=== PATIENT | male | born 1960 | race Two or more races ===

== ENCOUNTER 2021-05-27 18:59 | Outpatient (REF) | payer SELFPAY ==
--- NOTE | ~2021-05-27 | US_ITS ---
EXAMINATION: US VENOUS ULTRASOUND WITH DOPPLER LOWER EXTREMITY, RIGHT CLINICAL INFORMATION: Soft tissue disorders. COMPARISON: None TECHNIQUE: Ultrasound of the deep veins is performed from the hip to the calf with compression sonography and color and pulse Doppler assessment. Spectral analysis with color-flow imaging is performed. FINDINGS: There is normal venous compression and respiratory variation and augmented flow. The visualized common femoral vein, superficial femoral vein, profunda femoral vein, popliteal vein, and the trifurcation region shows no evidence of deep venous thrombosis. There is no significant popliteal fossa cyst. If the patient's symptoms persist, followup ultrasound in 5 days 7 days might be of value to exclude proximal propagation from a non-visualized calf vein. US/US venous duplex LE RT IMPRESSION: No DVT demonstrated in the right lower extremity.
== END 2021-05-27 19:00 | disposition home or self-care (01) ==
LOC: HO.US 18:59
PROVIDERS: Visit Provider Physician Assistant
DX: M79.604 Pain in right leg (principal); M79.89 Other specified soft tissue disorders
CPT/HCPCS: 93971

== ENCOUNTER 2021-12-11 18:34 | Inpatient (IN) | payer BC, SELFPAY ==
--- NOTE | ~2021-12-11 | MR_ITS ---
EXAMINATION: MR ABDOMEN WITHOUT AND WITH CONTRAST CLINICAL INFORMATION: Right hepatic lesion. COMPARISON: CT scan of the abdomen and pelvis dated 12/11/2021. TECHNIQUE: MR abdomen was performed without and with use of 10 mL intravenous Gadavist gadolinium contrast. Postcontrast images are performed in multiphase dynamic sequences. Imaging was performed in 3 planes. FINDINGS: LUNG BASES: The visualized lung bases are unremarkable. LIVER, GALLBLADDER, AND BILIARY TREE: In the right hepatic lobe is a homogeneous T2 hyperintense lesion demonstrating progressive peripheral nodular enhancement on postcontrast images measuring approximately 5.3 x 3.9 x 4.0 cm inferiorly in segment 5. No other significant hepatic abnormality. PANCREAS: Unremarkable. SPLEEN: Normal. ADRENAL GLANDS: Normal. KIDNEYS AND URETERS: Tiny T2 hyperintense, nonenhancing cysts bilaterally. No hydroureteronephrosis. GASTROINTESTINAL TRACT: The stomach, small bowel and appendix are unremarkable. Mild distal colonic diverticulosis of acute diverticulitis at the descending/sigmoid junction. ABDOMINAL WALL: No significant hernia is appreciated. LYMPH NODES: No lymphadenopathy. VASCULAR: Unremarkable. OSSEOUS STRUCTURES: Mild to moderate degenerative disc disease from L2-L3 and L5-S1 most pronounced at L3-L4. No suspicious abnormality. MR/MR abdomen wo/w con IMPRESSION: 1. Hepatic lesion most consistent with a hemangioma. 2. Known distal colonic diverticulosis and acute diverticulitis without significant change.
--- NOTE | ~2021-12-11 | CT_ITS ---
EXAMINATION: CT ABDOMEN AND PELVIS WITHOUT CONTRAST CLINICAL INFORMATION: Diverticulitis. Rule out perforation. COMPARISON: CT pelvis 05/26/2016 TECHNIQUE: Multidetector volumetric imaging was performed from the superior aspect of the liver through the pubic symphysis. Sagittal and coronal reformatted images were obtained on the technologist's workstation. This CT examination was performed using dose optimization techniques as appropriate, variously including the following: *Automated exposure control *Adjustment of mA and/or kV according to patient size (this includes techniques or standardized protocols for targeted exams where dose is matched to indication/reason for exam; i.e. extremities or head) *Use of iterative reconstruction technique DLP: 666 mGy-cm FINDINGS: LUNG BASES: The visualized lung bases are clear. LAD coronary calcifications. LIVER, GALLBLADDER, AND BILIARY TREE: 5.6 cm indeterminate mass in the inferior right liver lobe on series 3-32. No other liver lesions. No morphologic features of advanced cirrhosis. No biliary ductal dilation. The gallbladder is unremarkable with no evidence of radiopaque gallstones, gallbladder wall thickening, or obvious pericholecystic inflammatory changes. PANCREAS: Unremarkable. SPLEEN: Unremarkable. ADRENAL GLANDS: Unremarkable. KIDNEYS AND URETERS: The kidneys are normal in size, shape, and attenuation. No hydronephrosis, hydroureter, or calculi seen. No perinephric stranding. BLADDER: Slightly thick-walled appearance likely due to incomplete distention. GASTROINTESTINAL TRACT: Colonic diverticulosis. Segment of marked mural thickening of the junction of the distal descending and proximal sigmoid colon in the left lower quadrant with extensive pericolonic inflammatory change and small amount of tracking nonloculated retroperitoneal fluid. No definite extraluminal gas to suggest perforation. No formed pericolonic abscess. No additional bowel wall thickening. No dilated bowel loops. Normal appendix. Trace free pelvic fluid. No pneumoperitoneum. ABDOMINAL WALL: Small fat-containing inguinal hernias. LYMPH NODES: No lymphadenopathy. VASCULAR: Mild vascular calcifications. Normal caliber abdominal aorta. PELVIC VISCERA: Unremarkable. OSSEOUS STRUCTURES: No acute fracture or suspicious osseous lesion. Disc degenerative changes at L3-L4 and L4-L5 with lower lumbar facet arthrosis. CT/CT abdomen pelvis wo con IMPRESSION: 1. Findings are compatible with marked acute diverticulitis at the junction of the distal descending and proximal sigmoid colon with extensive mural thickening and pericolonic inflammatory change as well as nonloculated retroperitoneal fluid. No appreciable extraluminal gas or pericolonic abscess to suggest specific evidence of perforation. 2. Unexpected finding: Indeterminate 5.6 cm hypodense mass in the inferior right liver lobe. Recommend further characterization with multiphase MRI.
[2021-12-11 18:50] VITALS: BP 165/99; PULSE 81; RESP 16; TEMP 37.4; O2SAT 96; BMI 30.4
--- NOTE | 2021-12-11 19:32 | ED_ITS ---
HPI - Abdominal Pain General Chief Complaint: Abdominal Pain Stated Complaint: lower abd pain Time Seen by Provider: 12/11/21 18:55 Source: patient Mode of arrival: ambulatory Limitations: no limitations History of Present Illness HPI narrative: Patient comes to the emergency room complaining of 24 hours of abdominal pain, worse in the left lower quadrant. Pain is nonradiating. Patient denies nausea vomiting or diarrhea. Patient denies chest pain, no UTI or URI symptoms, no fever or chills Related Data Previous Rx's Medication Instructions Recorded tadalafil 20 mg tablet 20 mg PO ONCE PRN sexual activity 12/06/21 90 days #90 tabs Allergies Allergy/AdvReac Type Severity Reaction Status Date / Time lisinopril Allergy Unknown post nasal Unverified 02/08/20 00:00 drip No Known Allergies Allergy Unverified 03/01/20 16:22 Review of Systems Review of Systems Constitutional : No Weight loss, No Fever, No Chills, No Night Sweats, No Fatigue, No Malaise ENT/Mouth : No Hearing loss, No Ear Pain, No Nasal Congestion, No Sinus Pain, No Hoarseness, No sore throat, No Rhinorrhea, No Swallowing Difficulty Eyes: No Eye Pain, No Swelling, No Redness, No Foreign Body, No Discharge, No Vision Changes Cardiovascular : No Chest Pain, No SOB, No Dyspnea on Exertion, No Orthopnea, No Edema, No Palpitations Respiratory : No Cough, No Sputum, No Wheezing, No Smoke Exposure, No Dyspnea Gastrointestinal : No Nausea, No Vomiting, No Diarrhea, No Constipation, complaining of left lower quadrant pain, No Hematochezia, No Melena Genitourinary : no irregular bleeding, No Dysuria, No Urinary Frequency, No Hematuria, No Urinary Incontinence, No Urgency, No Flank Pain, No Urinary Flow Changes, No Hesitancy Musculoskeletal : No joint pain, No Myalgias, No Joint Swelling Skin : No Skin Lesions, No rash Neuro : No Weakness, No Numbness, No Paresthesias, No Loss of Consciousness, No Dizziness, No Headache Psych : No Anxiety/Panic, No Depression, No SI/HI/AH/VH, No Social Issues, Heme/Lymph: No Bruising, No Bleeding,No Lymphadenopathy Endocrine : No Polyuria, No Polydipsia, No Temperature Intolerance [facility] Past Medical History Medical History (Updated 06/29/22 @ 20:07 by Rafaela Flowers MD) Hypertension Social History Social History Advance Directives: No Physical Exam ED Vital Signs: Vital Signs - 24 hr 12/11/21 18:50 Temperature 99.4 F Pulse Rate 81 Respiratory Rate 16 Blood Pressure 165/99 H Pulse Oximetry 96 Oxygen Delivery Method Room Air BMI result Body Mass Index 30.4 Const Other: Appearance: Alert. Oriented X3. No acute distress. seems uncomfortable Eyes: Pupils equal, round and reactive to light. ENT: Pharynx normal. Neck: Normal inspection. Neck supple. No lymph nodes noted. No crepitus CVS: Normal heart rate and rhythm. Pulses normal. Normal S1 and S2 Respiratory: No respiratory distress. Breath sounds normal. No Wheezing. No rales Abdomen: Soft , significant pain to palpation in the left lower quadrant, mild suprapubic pain , no guarding,No rigidity. No distention. Skin: Skin warm and dry. Normal skin color. Normal skin turgor. Extremities: No lower extremity edema. No Lacerations. No Rash Neuro: Oriented X 3. No motor deficit. No sensory deficit. Moving all extremities. No slurred speech. CN 2 through 12 grossly intact Psych: calm, cooperative, normal affect Course Course Course Narrative: CT scan and labs are pending. At this time, patient declined pain medication or nausea medication. 20:00: I discussed the CT scan with the patient, patient has diverticulitis. At this time, patient requesting pain medication. Also, I discussed with the patient that he has nonspecific hypodense mass in the inferior right liver lobe. Also discussed with Dr. Arauz , patient will be admitted. MDM - Abdominal Pain Lab Data Result diagrams: 12/11/21 19:42 12/11/21 19:42 Labs: Lab Results 12/11/21 Range/Units 19:42 WBC 14.7 H (4.8-10.8) X10*3/uL RBC 5.10 (4.60-5.80) X10*6/uL Hgb 15.0 (14.0-18.0) g/dl Hct 45.8 (42.0-52.0) % MCV 89.8 (80.0-98.0) fL MCH 29.4 (27.0-33.0) pg MCHC 32.8 (31.0-36.0) g/dl RDW 13.3 (11.0-16.0) % Plt Count 258 (160-400) X10*3/uL MPV 9.9 (9.4-12.4) fL Immature Gran % (Auto) 0.4 (0.0-0.4) % Neut % (Auto) 82.7 H (45-73) % Lymph % (Auto) 10.7 L (20-40) % Hawkins % (Auto) 6.0 (2-11) % Eos % (Auto) 0.1 (0-4) % Baso % (Auto) 0.1 (0-2) % Lymph # (Auto) 1.6 (1.2-4.9) X10*3/uL [place] # (Auto) 0.9 (0.1-1.2) X10*3/uL Eos # (Auto) 0.0 (0.0-0.4) X10*3/uL Baso # (Auto) 0.0 (0.0-0.2) X10*3/uL Abs Immat Gran (auto) 0.06 H (0.00-0.03) X10*3/uL Absolute Neuts (auto) 12.2 H (2.0-8.3) x10*3/uL Absolute Nucleated RBC 0.000 (0.0-0.012) X10*3/uL Nucleated RBC % (auto) 0.0 (0.0-0.2) /100WBC Imaging Data CT scan - abdomen: Radiologist's impression: FINDINGS: LUNG BASES: The visualized lung bases are clear. LAD coronary calcifications. LIVER, GALLBLADDER, AND BILIARY TREE: 5.6 cm indeterminate mass in the inferior right liver lobe on series 3-32. No other liver lesions. No morphologic features of advanced cirrhosis. No biliary ductal dilation. The gallbladder is unremarkable with no evidence of radiopaque gallstones, gallbladder wall thickening, or obvious pericholecystic inflammatory changes.? PANCREAS: Unremarkable.? SPLEEN: Unremarkable.? ADRENAL GLANDS: Unremarkable.? KIDNEYS AND URETERS: The kidneys are normal in size, shape, and attenuation. No hydronephrosis, hydroureter, or calculi seen. No perinephric stranding. ? BLADDER: Slightly thick-walled appearance likely due to incomplete distention.? GASTROINTESTINAL TRACT: Colonic diverticulosis. Segment of marked mural thickening of the junction of the distal descending and proximal sigmoid colon in the left lower quadrant with extensive pericolonic inflammatory change and small amount of tracking nonloculated retroperitoneal fluid. No definite extraluminal gas to suggest perforation. No formed pericolonic abscess. No additional bowel wall thickening. No dilated bowel loops. Normal appendix. Trace free pelvic fluid. No pneumoperitoneum. ABDOMINAL WALL: Small fat-containing inguinal hernias.? LYMPH NODES: No lymphadenopathy. VASCULAR: Mild vascular calcifications. Normal caliber abdominal aorta. PELVIC VISCERA: Unremarkable.? OSSEOUS STRUCTURES: No acute fracture or suspicious osseous lesion. Disc degenerative changes at L3-L4 and L4-L5 with lower lumbar facet arthrosis.? CT/CT abdomen pelvis wo con IMPRESSION: ? 1. Findings are compatible with marked acute diverticulitis at the junction of the distal descending and proximal sigmoid colon with extensive mural thickening and pericolonic inflammatory change as well as nonloculated retroperitoneal fluid. No appreciable extraluminal gas or pericolonic abscess to suggest specific evidence of perforation. 2. Unexpected finding: Indeterminate 5.6 cm hypodense mass in the inferior right liver lobe. Recommend further characterization with multiphase MRI. ? ? Discharge Plan Discharge Clinical Impression: Diverticulitis Patient Disposition: Admitted As Inpatient Prescriptions: No Action tadalafil 20 mg tablet 20 mg PO ONCE PRN (Reason: sexual activity) 90 Days Qty: 90 0RF
[2021-12-11 19:47] LABS: MANUAL DIFF FLAG NO
[2021-12-11 19:49] LABS: Basophils Percent Auto 0.1 % (0-2); Eosinophils Percent Auto 0.1 % (0-4); Hematocrit 45.8 % (42.0-52.0); Imm Gran Abs Auto 0.06 X10*3/uL (0.00-0.03); Imm Gran Pct Auto 0.4 % (0.0-0.4); Lymphocytes Absolute Auto 1.6 X10*3/uL (1.2-4.9); Lymphocytes Percent Auto 10.7 % (20-40); Mean Corpuscular HGB Conc 32.8 g/dl (31.0-36.0); Mean Corpuscular Hemoglobin 29.4 pg (27.0-33.0); Mean Corpuscular Volume 89.8 fL (80.0-98.0); Mean Platelet Volume 9.9 fL (9.4-12.4); Monocytes Absolute Auto 0.9 X10*3/uL (0.1-1.2); Neutrophils Absolute Auto 12.2 x10*3/uL (2.0-8.3); Neutrophils Percent Auto 82.7 % (45-73); Platelet Count 258 X10*3/uL (160-400); Red Cell Distribution Width 13.3 % (11.0-16.0); White Blood Count 14.7 X10*3/uL (4.8-10.8)
[2021-12-11 20:06] LABS: Lactic Acid 1.7 mmol/L (0.5-2.0)
[2021-12-11 20:07] LABS: COVID-19 Test Negative (Negative)
[2021-12-11 20:12] LABS: Alanine Aminotransferase 25 U/L (0-40); Albumin Level 4.7 g/dL (3.5-5.0); Alkaline Phosphatase 55 U/L (39-117); Anion Gap 15 (12-20); Aspartate Amino Transferase 23 U/L (5-37); Bilirubin Direct 0.4 mg/dL (0.0-0.5); Bilirubin Total 1.2 mg/dL (0.0-1.0); Blood Urea Nitrogen 15 mg/dL (9-16); Calcium 9.4 mg/dL (8.4-10.2); Carbon Dioxide 24 mmol/L (22-29); Chloride 102 mmol/L (96-108); Creatinine Clr Calc Pharmacy 77.8; Estimated Glomerular Filt Rate > 60; Glucose Random 105 mg/dL (60-115); Lipase 8 U/L (8-78); Sodium 137 mmol/L (135-145); Total Protein 7.6 g/dL (6.5-8.0)
--- NOTE | 2021-12-11 20:15 | PM.HPGS ---
History of Present Illness History of Present Illness Date of Service: 12/11/21 Chief complaint: Acute sigmoid diverticulitis Narrative: Xiomy Melchor is a 61 year old malePresenting with complaints of abdominal pain in the left lower quadrant. The pain began yesterday evening shortly after eating a hamburger. The pain persisted increased during the day today and was associated with nausea , abdominal bloating and constipation. he reports a similar episode in the past but not to this severity. He denies any bleeding per rectum. He presented to the emergency department [place] [id number]. on examination he is tender in the left lower quadrant. CT of the abdomen and pelvis revealed inflammation in the junction between the descending colon and sigmoid colon with intraperitoneal fluid but no free air or abscess. Findings were suggestive of diverticulitis. Incidentally noted is a lesion /mass in the right lobe of the liver on this noncontrast CT. An MRI of the abdomen was recommended to further evaluate this possible lesion. Review of Systems Review of Systems: Yes all other systems are reviewed and are negative Constitutional: Constitutional: Denies chills, Reports fatigue, Denies fever(s) and Reports poor appetite Cardiovascular: Cardiovascular: Denies chest pain, Denies irregular heart rhythm and Denies palpitations Gastrointestinal: Gastrointestinal: Reports as per HPI, Reports abdominal pain, Reports change in bowel habits and Reports constipation Endocrine: Endocrine: Reports fatigue and Denies palpitations PMFSH Past Medical History Medical History Hypertension Social History Social History Advance Directives: No Meds Allergies Allergy/AdvReac Type Severity Reaction Status Date / Time lisinopril Allergy Unknown post nasal Unverified 02/08/20 00:00 drip No Known Allergies Allergy Unverified 03/01/20 16:22 Active Medications: Current Medications Hydromorphone HCl (Hydromorphone Hcl 1 Mg/Ml Syringe) 0.5 mg IVPUSH Q3H PRN; Protocol PRN Reason: Pain, Severe (Pain Scale 7-10) Piperacillin Sod/Tazobactam (Sod 3.375 gm/ Sodium Chloride) 50 mls @ 100 mls/hr IV ONCE ONE Stop: 12/11/21 20:24 Sodium Chloride (Ns) 1,000 mls @ 999 mls/hr IVCONT .Q1H1M ONE Stop: 12/11/21 20:58 Acetaminophen (Ofirmev) 1,000 mg in 100 mls @ 400 mls/hr IV Q6H [facility] Stop: 12/12/21 14:29 Dextrose/Lactated Ringer's (D5lr) 1,000 mls @ 125 mls/hr IVCONT .Q8H [facility] Piperacillin Sod/Tazobactam (Sod 3.375 gm/ Sodium Chloride) 50 mls @ 100 mls/hr IV Q6H [facility] Ondansetron HCl (Ondansetron Hcl 4 Mg/2 Ml Vial) 4 mg IVPUSH QID PRN PRN Reason: Nausea Oxycodone HCl (Oxycodone Hcl Immed Release 5 Mg Tablet) 5 mg PO Q6H PRN PRN Reason: Pain, Moderate (Pain Scale 4-6 Pharmacy Consult (Consult Rx Perform Med Rec) 1 each MISCELLANE ONCE PRN PRN Reason: Consult order Sodium Chloride (0.9 % Sodium Chloride Flush 3 Ml Syringe) 3 ml IVFLUSH QSHIFT [facility] Zolpidem Tartrate (Zolpidem Tartrate 5 Mg Tablet) 5 mg PO BEDTIME PRN PRN Reason: Insomnia Physical Exam Vital Signs: Vital Signs: Last Vital Signs Temp 99.4 F 12/11/21 18:50 Pulse 81 12/11/21 18:50 Resp 16 12/11/21 18:50 BP 165/99 H 12/11/21 18:50 Pulse Ox 96 12/11/21 18:50 O2 Del Method 12/11/21 18:50 BMI result Body Mass Index 30.4 Const: General: ill appearing Nutritional Appearance: well nourished Orientation/consciousness: patient oriented x3 Limitations: no limitations HEENT: Head: Yes normocephalic and Yes atraumatic Eyes: Sclerae: sclerae normal EOM: EOMs intact bilaterally Resp: Effort & Inspection: normal respiratory effort, no audible wheezes, no cough and no respiratory distress GI: Palpation (GI): Soft to palpation, Tenderness to palpation present (GI) in the LLQ, no guarding and not rigid Skin: General skin exam: no rashes or lesions noted Neuro: General: patient oriented x3 Extrem: General: Yes normal to inspection Results Results Labs: Short CBC 12/11/21 Range/Units 19:42 WBC 14.7 H (4.8-10.8) X10*3/uL Hgb 15.0 (14.0-18.0) g/dl Hct 45.8 (42.0-52.0) % Plt Count 258 (160-400) X10*3/uL BMP 12/11/21 19:42 Sodium 137 Potassium 4.0 Chloride 102 Carbon Dioxide 24 BUN 15 Creatinine 1.09 Calcium 9.4 Liver Function 12/11/21 Range/Units 19:42 Total Bilirubin 1.2 H (0.0-1.0) mg/dL Direct Bilirubin 0.4 (0.0-0.5) mg/dL AST 23 (5-37) U/L ALT 25 (0-40) U/L Alkaline Phosphatase 55 (39-117) U/L Albumin 4.7 (3.5-5.0) g/dL Abdomen CT scan report/results: image reviewed CT scan - pelvis: image reviewed Assessment and Plan (1) Diverticulitis: Status: Acute (2) Liver lesion, right lobe: Status: Acute Plan 61-year-old male patient presenting with sudden onset of abdominal pain in the left lower quadrant over the last 24 hours associated with abdominal distension, nausea and constipation. On examination the patient is tender in the left lower quadrant without rebound or guarding. Findings are suggestive of acute diverticulitis. Initial laboratories revealed an elevated WBC and CT revealed inflammatory changes in the distal descending colon and junction with the sigmoid colon. There is a small amount of intraperitoneal fluid but no evidence of abscess or perforation. Findings are suggestive of diverticulitis of the descending/sigmoid colon. Findings noted in the right lobe of the liver will need further workup with MRI which will be ordered for tomorrow morning. Will place patient on Zosyn and monitor patient's WBC and clinical examination. Quality Stroke Does the patient have a stroke diagnosis?: No VTE Prior VTE?: No VTE Risk Level:: Surgical - low VTE Device Contraindication: N/A - Device Ordered VTE Drug Contraindication: Treatment Not Indicated Procedures Date of Service Date of Service: 12/11/21
[2021-12-11 20:26] VITALS: RESP 18
[2021-12-11] MEDS: Morphine Sulfate 4 MG/ML CARTRIDGE IVPUSH (20:26)
[2021-12-11] MEDS: Piperacillin Sodium/Tazobactam 3.375 GM in 0.9 % Sodium Chloride 50 ML IV (20:26)
[2021-12-11] MEDS: ondansetron HCL 4 MG/2 ML VIAL IVPUSH (20:27)
--- NOTE | 2021-12-11 20:34 | PHA.MEDREC ---
Pharmacy Consult ? Medication Reconciliation Pharmacy has completed the medication reconciliation.
[2021-12-11 20:58] VITALS: BP 138/72; PULSE 77; RESP 18; TEMP 37.3; O2SAT 94
--- NOTE | 2021-12-11 21:07 | PC.NURSE ---
called pharmacy for IV acetaminophen.
[2021-12-11] MEDS: 0.9 % Sodium Chloride 1,000 ML 999 ML IVCONT (21:12)
--- NOTE | 2021-12-11 21:21 | PC.NURSE ---
pt a&ox3, vss, reports reduction in abd pain 2/10, medicated per provider order. NaCl running, pending medication from pharmacy.
[2021-12-11] MEDS: Dextrose 5 % and Lactated Ring 1,000 ML 125 ML IVCONT (23:00)
--- NOTE | 2021-12-11 23:02 | PC.NURSE ---
D5LR running at 125ml/hr.
[2021-12-12] MEDS: HYDROmorphone HCl 1 MG/ML SYRINGE 0.5 MG IVPUSH ×2 (02:43→08:32)
[2021-12-12] MEDS: Piperacillin Sodium/Tazobactam 3.375 GM in 0.9 % Sodium Chloride 50 ML IV ×4 (02:45→20:46)
--- NOTE | 2021-12-12 02:52 | PC.NURSE ---
medicated per provider order, pt c/o 12/22 abd pain - medicated w PRN.
[2021-12-12 04:30] VITALS: BP 103/67; PULSE 60; RESP 14; TEMP 36.8; O2SAT 94
[2021-12-12 04:49] LABS: MANUAL DIFF FLAG NO
[2021-12-12 04:51] LABS: Basophils Percent Auto 0.1 % (0-2); Eosinophils Percent Auto 0.3 % (0-4); Hematocrit 39.2 % (42.0-52.0); Hemoglobin 12.9 g/dl (14.0-18.0); Imm Gran Abs Auto 0.04 X10*3/uL (0.00-0.03); Imm Gran Pct Auto 0.3 % (0.0-0.4); Lymphocytes Absolute Auto 1.6 X10*3/uL (1.2-4.9); Lymphocytes Percent Auto 12.5 % (20-40); Mean Corpuscular HGB Conc 32.9 g/dl (31.0-36.0); Mean Corpuscular Hemoglobin 29.6 pg (27.0-33.0); Mean Corpuscular Volume 89.9 fL (80.0-98.0); Mean Platelet Volume 9.6 fL (9.4-12.4); Monocytes Absolute Auto 0.9 X10*3/uL (0.1-1.2); Monocytes Percent Auto 7.4 % (2-11); Neutrophils Absolute Auto 9.8 x10*3/uL (2.0-8.3); Neutrophils Percent Auto 79.4 % (45-73); Platelet Count 227 X10*3/uL (160-400); Red Blood Count 4.36 X10*6/uL (4.60-5.80); Red Cell Distribution Width 13.5 % (11.0-16.0); White Blood Count 12.4 X10*3/uL (4.8-10.8)
[2021-12-12 05:07] LABS: Anion Gap 13 (12-20); Blood Urea Nitrogen 13 mg/dL (9-16); Calcium 8.1 mg/dL (8.4-10.2); Carbon Dioxide 23 mmol/L (22-29); Chloride 103 mmol/L (96-108); Creatinine Clr Calc Pharmacy 77.1; Estimated Glomerular Filt Rate > 60; Glucose Random 149 mg/dL (60-115); Potassium 3.7 mmol/L (3.3-5.1); Sodium 135 mmol/L (135-145)
--- NOTE | 2021-12-12 08:04 | PM.PNGS ---
Subjective Subjective Date of Service: 12/12/21 Interval history: Late entry: Patient feels improved but still has pain in the left lower quadrant. Pain increases with ambulation. Physical Exam Vital Signs: Vital Signs: Last Vital Signs Temp 99.2 F 12/12/21 23:54 Pulse 71 12/12/21 23:54 Resp 18 12/12/21 23:54 BP 135/80 12/12/21 23:54 Pulse Ox 95 12/12/21 23:54 O2 Del Method 12/12/21 23:54 BMI result Body Mass Index 30.4 Const: General: no acute distress and well developed Resp: Effort & Inspection: normal respiratory effort, no audible wheezes, no cough and no respiratory distress GI: Other: Soft, tender left lower quadrant with localized rebound, no guarding rigidity. Skin: Other: Warm, dry, no rash Objective Data Active Medications Hydromorphone HCl (Hydromorphone Hcl 1 Mg/Ml Syringe) 0.5 mg IVPUSH Q3H PRN; Protocol PRN Reason: Pain, Severe (Pain Scale 7-10) Last Admin: 12/12/21 08:32 Dose: 0.5 mg Documented By: ELENI-MICHOACANO Piperacillin Sod/Tazobactam (Sod 3.375 gm/ Sodium Chloride) 50 mls @ 100 mls/hr IV Q6H [facility] Last Infusion: 12/13/21 04:18 Dose: 0 mls/hr Documented By: NATY Ondansetron HCl (Ondansetron Hcl 4 Mg/2 Ml Vial) 4 mg IVPUSH QID PRN PRN Reason: Nausea Oxycodone HCl (Oxycodone Hcl Immed Release 5 Mg Tablet) 5 mg PO Q6H PRN PRN Reason: Pain, Moderate (Pain Scale 4-6 Pharmacy Consult (Consult Rx Perform Med Rec) 1 each MISCELLANE ONCE PRN PRN Reason: Consult order Sodium Chloride (0.9 % Sodium Chloride Flush 3 Ml Syringe) 3 ml IVFLUSH QSHIFT [facility] Last Admin: 12/13/21 02:03 Dose: 3 ml Documented By: NATY Zolpidem Tartrate (Zolpidem Tartrate 5 Mg Tablet) 5 mg PO BEDTIME PRN PRN Reason: Insomnia Labs CBC & Chem 7: 12/12/21 04:39 12/12/21 04:39 Labs: Laboratory Results - last 24 hr 12/12/21 08:45 Urine Color YELLOW Urine Appearance HAZY Urine pH 6.0 Ur Specific [place] 1.025 Urine Protein NEG Urine Glucose (UA) NEG Urine Ketones NEG Urine Blood 1+ H Urine Nitrite NEG Ur Leukocyte Esterase NEG Urine RBC 1-4 Urine WBC 0-2 Ur Squamous Epith Cells TRACE Urine Bacteria NONE Urine Mucus TRACE Microbiology Microbiology Results: Microbiology 12/11/21 20:04 Blood Culture - Preliminary Blood - Venous No growth after 24 hours. 12/11/21 19:42 Blood Culture - Preliminary Blood - Venous No growth after 24 hours. Procedures Date of Service Date of Service: 12/12/21 Progress Note: A&P Assessment and plan (1) Diverticulitis: Status: Acute Assessment and Plan: Overall patient is improved with improving WBC and decreased abdominal pain. He continues to have tenderness in the left lower quadrant. Will keep for 1 more day with IV antibiotics. Anticipate discharge tomorrow with oral antibiotics. (2) Liver lesion, right lobe: Status: Acute Assessment and Plan: Reviewed MRI of the abdomen. Findings in the right lobe of the liver appear consistent with a hemangioma. No old scans to compare to. No biopsy or surgical intervention required at this time. Patient informed of the findings. Time Spent With Patient Time: Total time spent is greater than 50% in coordination of care (as documented) at patient's floor/unit and/or counseling patient: Quality Stroke Does the patient have a stroke diagnosis?: No VTE Prior VTE?: No VTE Risk Level:: Surgical - low VTE Device Contraindication: N/A - Device Ordered VTE Drug Contraindication: Treatment Not Indicated
[2021-12-12 09:23] VITALS: BP 128/76; PULSE 86; RESP 20; TEMP 37.6; O2SAT 97
[2021-12-12 09:45] LABS: Appearance Urine HAZY; Color Urine YELLOW; Glucose Urine UA NEG (NEG); Leukocyte Esterase Urine NEG (NEG); Nitrite Urine NEG (NEG); Specific Gravity - Urine 1.025 (1.005-1.025); UACC Culture Trigger NO; Urine Blood 1+ (NEG); Urine Ketones NEG (NEG); Urine Protein NEG (NEG-TRACE)
[2021-12-12 09:52] LABS: Mucus Urine TRACE /LPF; Squamous Epithelial Cell Urine TRACE /LPF; WBC Urine 0-2 /HPF (0-4)
[2021-12-12] MEDS: 0.9 % Sodium Chloride Flush 3 ML SYRINGE IVFLUSH ×2 (12:02→17:00)
--- NOTE | 2021-12-12 12:36 | MHC.CM.PN ---
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
[2021-12-12 16:00] VITALS: BP 109/70; PULSE 82; RESP 18; TEMP 37.3; O2SAT 94
[2021-12-12 19:59] VITALS: BP 116/71; PULSE 67; RESP 16; TEMP 37.1; O2SAT 97
[2021-12-12 22:34] VITALS: BP 143/85; PULSE 73; RESP 18; TEMP 37.6; O2SAT 99
[2021-12-12 23:54] VITALS: BP 135/80; PULSE 71; RESP 18; TEMP 37.3; O2SAT 95
[2021-12-13] MEDS: 0.9 % Sodium Chloride Flush 3 ML SYRINGE IVFLUSH ×2 (02:03→08:22)
[2021-12-13] MEDS: Piperacillin Sodium/Tazobactam 3.375 GM in 0.9 % Sodium Chloride 50 ML IV ×3 (03:22→13:17)
[2021-12-13 08:00] VITALS: BP 142/81; PULSE 75; RESP 18; TEMP 37.2; O2SAT 94
--- NOTE | 2021-12-13 08:07 | PM.PNGS ---
Subjective Subjective Date of Service: 12/13/21 Interval history: Patient overall is much improved with decreased abdominal pain. He does have some pain with ambulation. He is passing flatus and tolerating a regular diet. Physical Exam Vital Signs: Vital Signs: Last Vital Signs Temp 99.2 F 12/12/21 23:54 Pulse 71 12/12/21 23:54 Resp 18 12/12/21 23:54 BP 135/80 12/12/21 23:54 Pulse Ox 95 12/12/21 23:54 O2 Del Method 12/12/21 23:54 BMI result Body Mass Index 30.4 Const: General: comfortable and no acute distress Nutritional Appearance: well nourished Orientation/consciousness: patient oriented x3 Resp: Effort & Inspection: normal respiratory effort GI: Palpation (GI): Soft to palpation, Tenderness to palpation present (GI) in the LLQ; with no rebound tenderness, no guarding and not rigid Skin: General skin exam: no rashes or lesions noted Neuro: General: patient oriented x3 Extrem: General: Yes no clubbing, cyanosis or edema Objective Data Active Medications Hydromorphone HCl (Hydromorphone Hcl 1 Mg/Ml Syringe) 0.5 mg IVPUSH Q3H PRN; Protocol PRN Reason: Pain, Severe (Pain Scale 7-10) Last Admin: 12/12/21 08:32 Dose: 0.5 mg Documented By: GLEN Piperacillin Sod/Tazobactam (Sod 3.375 gm/ Sodium Chloride) 50 mls @ 100 mls/hr IV Q6H [facility] Last Infusion: 12/13/21 04:18 Dose: 0 mls/hr Documented By: NATY Ondansetron HCl (Ondansetron Hcl 4 Mg/2 Ml Vial) 4 mg IVPUSH QID PRN PRN Reason: Nausea Oxycodone HCl (Oxycodone Hcl Immed Release 5 Mg Tablet) 5 mg PO Q6H PRN PRN Reason: Pain, Moderate (Pain Scale 4-6 Pharmacy Consult (Consult Rx Perform Med Rec) 1 each MISCELLANE ONCE PRN PRN Reason: Consult order Sodium Chloride (0.9 % Sodium Chloride Flush 3 Ml Syringe) [facility] Last Admin: 12/13/21 02:03 Dose: 3 ml Documented By: NATY Zolpidem Tartrate (Zolpidem Tartrate 5 Mg Tablet) 5 mg PO BEDTIME PRN PRN Reason: Insomnia Labs CBC & Chem 7: 12/12/21 04:39 12/12/21 04:39 Labs: Laboratory Results - last 24 hr 12/12/21 08:45 Urine Color YELLOW Urine Appearance HAZY Urine pH 6.0 Ur Specific [place] 1.025 Urine Protein NEG Urine Glucose (UA) NEG Urine Ketones NEG Urine Blood 1+ H Urine Nitrite NEG Ur Leukocyte Esterase NEG Urine RBC 1-4 Urine WBC 0-2 Ur Squamous Epith Cells TRACE Urine Bacteria NONE Urine Mucus TRACE Microbiology Microbiology Results: Microbiology 12/11/21 20:04 Blood Culture - Preliminary Blood - Venous No growth after 24 hours. 12/11/21 19:42 Blood Culture - Preliminary Blood - Venous No growth after 24 hours. Procedures Date of Service Date of Service: 12/13/21 Progress Note: A&P Assessment and plan (1) Diverticulitis: Status: Acute (2) Hemangioma of liver: Status: Acute Plan Overall patient is much improved with decreased abdominal pain. He is now passing flatus and tolerating a regular diet. Will discharged to home today on oral antibiotics. He should follow up in 1-2 weeks and call sooner for increased pain, fever, chills, or other concerns. I recommended a low residue diet. Time Spent With Patient Time: Total time spent is greater than 50% in coordination of care (as documented) at patient's floor/unit and/or counseling patient: Quality Stroke Does the patient have a stroke diagnosis?: No VTE Prior VTE?: No VTE Risk Level:: Surgical - low VTE Device Contraindication: N/A - Device Ordered VTE Drug Contraindication: Treatment Not Indicated
--- NOTE | 2021-12-13 08:09 | P.DS_ITS ---
DS: Providers Provider Date of Service: 12/13/21 Date of admission: 12/11/21 20:08 Date of discharge: 12/13/21 Primary care physician: Vicente Carlos MD Admitting clinician: Sushil Arauz Discharging clinician: Suhsil Arauz DS: Diagnosis Discharge Diagnosis (1) Diverticulitis: Status: Acute (2) Hemangioma of liver: Status: Acute DS: Summary Hospital Course Hospital Course: Xiomy Melchor is a 61 year old male presenting with complaints of abdominal pain in the left lower quadrant.? The pain began in the evening prior to admission shortly after eating a hamburger.? The pain persisted increased during the day and was associated with nausea , abdominal bloating and constipation. He noted a similar episode in the past but not to this severity.? He denies any bleeding per rectum.? He presented to the emergency department [place] [id number]. on examination he is tender in the left lower quadrant.? CT of the abdomen and pelvis revealed inflammation in the junction between the descending colon and sigmoid colon with intraperitoneal fluid but no free air or abscess.? Findings were suggestive of diverticulitis.? Incidentally noted is a lesion /mass in the right lobe of the liver on this noncontrast CT.? An MRI of the abdomen was recommended to further evaluate this possible lesion. Patient was admitted to the surgical service and placed on Zosyn IV. He was kept on clear liquids. On the 2nd hospital day he reported decreased abdominal pain and no fever or chills. Laboratories revealed a decrease in the WBC to 12. On examination he remained tender in the left lower quadrant but not as severe. He continued to have pain when up and ambulating. The decision was made to continue the IV antibiotics for another 24 hours. An MRI of the abdomen was obtained to further evaluate the liver mass. Findings were felt to be suggestive of a hemangioma. On the 3rd hospital day the patient continued to have some mild left lower quadrant pain but overall felt much improved. The pain was improved with ambulation as well. On examination he was less tender in the left lower quadrant and no other tenderness was noted in other quadrants. He tolerated a regular diet without nausea or vomiting. He will be discharged to home on Augmentin 3 times daily for the next 2 weeks. I have asked him to return to the office in 1-2 weeks for follow-up examination. He is encouraged to call for increased pain, fever, chills or other concerns. Time spent discussing smoking cessation with patient: 3 to 10 minutes Status at Discharge Functional status at discharge: independent ambulation Overall status at discharge: patient is back to baseline Time Spent with Patient Time attestation: Total time spent providing and/or coordinating discharge services: Discharge coordination time: Less than 30 minutes Quality: Safe Use of Opioids Does Pt have an Active Cancer Diagnosis on the Problem List?: No Quality: Stroke Does the patient have a stroke diagnosis?: No Physical Exam Vital Signs: Vital Signs: Last Vital Signs Temp 99.2 F 12/12/21 23:54 Pulse 71 12/12/21 23:54 Resp 18 12/12/21 23:54 BP 135/80 12/12/21 23:54 Pulse Ox 95 12/12/21 23:54 O2 Del Method 12/12/21 23:54 BMI result Body Mass Index 30.4 Const: General: no acute distress and well developed Nutritional Appearance: well nourished Orientation/consciousness: patient oriented x3 Resp: Effort & Inspection: normal respiratory effort GI: Palpation (GI): Soft to palpation, Tenderness to palpation present (GI) in the LLQ; with no rebound tenderness, no guarding and not rigid Skin: General skin exam: no rashes or lesions noted Neuro: General: patient oriented x3 Extrem: General: Yes no clubbing, cyanosis or edema DS: Data Data Completed and Pending Labs on day of discharge: Laboratory Results - last 24 hr 12/12/21 08:45 Urine Color YELLOW Urine Appearance HAZY Urine pH 6.0 Ur Specific [place] 1.025 Urine Protein NEG Urine Glucose (UA) NEG Urine Ketones NEG Urine Blood 1+ H Urine Nitrite NEG Ur Leukocyte Esterase NEG Urine RBC 1-4 Urine WBC 0-2 Ur Squamous Epith Cells TRACE Urine Bacteria NONE Urine Mucus TRACE Preliminary micro results at discharge 12/11/21 20:04 Blood Culture - Preliminary Blood - Venous No growth after 24 hours. 12/11/21 19:42 Blood Culture - Preliminary Blood - Venous No growth after [address] scan - abdomen: Radiologist's impression: ITS Impressions Abdomen/Pelvis CT 12/11/21 19:25 IMPRESSION: 1. Findings are compatible with marked acute diverticulitis at the junction of the distal descending and proximal sigmoid colon with extensive mural thickening and pericolonic inflammatory change as well as nonloculated retroperitoneal fluid. No appreciable extraluminal gas or pericolonic abscess to suggest specific evidence of perforation. 2. Unexpected finding: Indeterminate 5.6 cm hypodense mass in the inferior right liver lobe. Recommend further characterization with multiphase MRI. Abdomen MRI 12/12/21 10:58 IMPRESSION: 1. Hepatic lesion most consistent with a hemangioma. 2. Known distal colonic diverticulosis and acute diverticulitis without significant change. Discharge Plan Discharge Patient Disposition: Home, Self-Care Discharge Diagnosis: Sigmoid diverticulitis Referrals: Vicente Carlos MD [Primary Care Provider] - 1 Week Sushil Arauz MD [Physician] - 1 Week Discharge Medications: New amoxicillin-pot clavulanate [Augmentin] 500-125 mg tablet 1 tab PO Q8H 14 Days Qty: 42 0RF Continued losartan 25 mg Tablet 25 mg PO DAILY Discharge Orders: Discharge Order (Routine); Ordered 12/13/21 Ordered By: Sushil Arauz Diet: Regular diet Activity on Discharge: As tolerated Stand Alone Forms: Patient Portal Discharge page Care Plan Goals: Return to normal activity and diet Health Concerns: Abdominal pain, left lower abdomen Plan of Treatment: Bowel rest, IV hydration, IV antibiotics Assessment: Sigmoid diverticulitis Patient Instructions: Diverticulitis Diet (DC)
--- NOTE | 2021-12-13 11:33 | MHC.CM.PN ---
PT MEDICALLY CLEARED FOR D/C HOME NO SERVICES, FAMILY FOR TRANSPORT
== END 2021-12-13 14:44 | disposition home or self-care (01) | DRG 244 ==
LOC: HO.ED 20:07 → HO.EDOVER 20:15 → HO.ICU 12-12 06:56 → HO.S3 12-12 22:35
PROVIDERS: Admitting Provider Surgery; Emergency Provider Emergency Medicine; PCP Internal Medicine; Visit Provider Surgery
DX: K57.32 Diverticulitis of large intestine without perforation or abscess without bleeding (principal); D18.03 Hemangioma of intra-abdominal structures; Z20.822 Contact with and (suspected) exposure to COVID-19; Z79.899 Other long term (current) drug therapy
CPT/HCPCS: 36415; 74176; 74183; 80048; 80076; 81001; 83605; 83690; 85025; 87040; 87635; 96361; 96374; 96375; 99284; A9585; J0131; J1170; J2270; J2405; J2543